=== PATIENT | male | born 1970 | race Caucasian/White ===

== ENCOUNTER 2018-04-02 01:25 | Inpatient (IN) ==
[2018-04-02] MEDS ORDERED: Acetaminophen 325 MG Tablet PO PRN (03:53)
[2018-04-02] MEDS ORDERED: Aluminum/Magnesium/Simethacone Susp 30 ML UDC PO PRN (03:55)
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
[2018-04-02] MEDS ORDERED: QUEtiapine 100 MG Tablet PO SCH (21:00)
--- NOTE | 2018-04-03 15:18 | P.PNPSY ---
Subjective Remarks: Patient seen for follow up; chart reviewed. Discussion with nursing staff reported that patient noted to be irritable in the morning with labile mood, noted to be crying in his room. Patient was found lying on hospital bed, pleasant, cooperative. Patient state he is feeling "all right" stating having slept less evening was having nightmares and even prior to his admission. He reports eating and drinking well with decreased energy concentration still that his mood is "shitty" continues report feeling depressed and continues with suicidal ideations. Review of Systems All other systems reviewed negative except as stated in HPI Mental Status Examination Appearance: Disheveled, Other (Multiple visible tattoos including his face) Consciousness: Alert Orientation: Person, Place, Date/Time Motor Activity: Normal gait Speech: Unremarkable Language: Adequate Fund of Knowledge: Inadequate Attention and Concentration: Adequate Memory: Unremarkable Mood: Sad, Other ("Depressed") Affect: Sad, Blunt Thought Process & Associations: Intact, Linear Thought Content: Appropriate Hallucination Type: Auditory (Vague) Delusion Type: None Suicidal Ideation: Yes Suicidal Plan: No Suicidal Intention: No Homicidal Ideation: No Homicidal Plan: No Homicidal Intention: No Insight: Fair Judgment: Impulsive Assessment and Plan - Assessment (1) Major depressive disorder Code(s): F32.9 - Major depressive disorder, single episode, unspecified Status : Acute - Plan Plan: Patient this time continues with depressed mood along with continue suicide ideations. We will continue to titrate quetiapine 200 mg p.o. at bedtime for mood stabilization and depression. We will continue to monitor mood and behavior. Continue to encourage patient to participate in groups and activities. Discharge planning a progress. Justification for Continued Inpatient Stay: At risk of further decompensation at lower level care.
[2018-04-03] MEDS ORDERED: QUEtiapine 100 MG Tablet PO SCH (21:00)
[2018-04-04 05:54] VITALS: RESP 18
--- NOTE | 2018-04-04 07:48 | P.TTN ---
- Patient Problems Problems: 1. Discharge planning 2. Medication compliance 3. Knowledge deficit 4. Lack of coping skills - Progress Toward Goals Provider Present: Dr. Raúl Aguilar (Patient needs to remain for further stabilization, Dr. Aguilar is titrating medications.) Psychiatric Counselors Present: Lobo Díaz Jr., [facility] (Patient reports he lives with his friend and will return to her residence upon discharge, likely discharge late this week or early next week.) Group Spec/RT/OT/[place] Present: SARA Randall (Patient attends groups and is redirectable.) - Documentation Teaching Recipient: Patient
[2018-04-04 16:46] VITALS: BP 115/63; PULSE 92; TEMP 99; O2SAT 96
--- NOTE | 2018-04-04 17:17 | P.PNPSY ---
Subjective Remarks: Patient seen for follow-up, chart reviewed. Discussion with nursing staff reported that patient patient less isolative and less irritable. Patient was found in the room sitting in chair noted B, cooperative. Patient states that he is feeling less depressed today stating that he is sleeping better with continued improved appetite. He states that he is feeling more comfortable around people and noted be less isolative. Patient continues to have intermittent suicide ideation but states it is decreasing. Patient mentions continuing with processing his grief and his mother had 5 months ago. Patient denies any auditory or visual hallucinations. Patient denies any homicidal ideations or delusions at this time. Discussion of having patient return back to his friend's home was reviewed as well as the possibility of him being referred to a sober living facility which he was open to. Review of Systems All other systems reviewed negative except as stated in HPI Mental Status Examination Appearance: Appropriate, Other (Multiple visible tattoos including his face) Consciousness: Alert Orientation: Person, Place, Date/Time Motor Activity: Normal gait Speech: Unremarkable Language: Adequate Fund of Knowledge: Inadequate Attention and Concentration: Adequate Memory: Unremarkable Mood: Sad, Other ("Depressed") Affect: Sad (Lessening) Thought Process & Associations: Intact, Linear Thought Content: Appropriate Hallucination Type: Auditory (Vague) Delusion Type: None Suicidal Ideation: Yes (Decreasing) Suicidal Plan: No Suicidal Intention: No Homicidal Ideation: No Homicidal Plan: No Homicidal Intention: No Insight: Fair Judgment: Impulsive Assessment and Plan - Assessment (1) Major depressive disorder Code(s): F32.9 - Major depressive disorder, single episode, unspecified Status : Acute - Plan Plan: Patient noted to be improving in mood with decrease in severity of depressive symptoms and decreasing in frequency of suicidal ideation but continued to be present. We will continue to titrate quetiapine to 150 mg p.o. at bedtime for mood stabilization and depression. We will continue to monitor mood and behavior. We will continue to encourage patient to participate in groups and activities. Patient interested in sober living facility which will be explored tomorrow with counselor but states has a friend whom he can stay with upon stabilization of discharge. Discharge planning in progress. Justification for Continued Inpatient Stay: At risk of further decompensation at lower level care.
[2018-04-04] MEDS ORDERED: QUEtiapine 100 MG Tablet PO SCH (21:00)
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
== END 2018-04-05 15:34 | disposition home or self-care (01) ==
LOC: H270 02:45
PROVIDERS: ADMIT Student in an Organized Health Care Education/Training Program; ATTEND Student in an Organized Health Care Education/Training Program